=== PATIENT | female | born 1940 | race Caucasian/White ===

== ENCOUNTER 2021-02-18 11:23 | Emergency (ER) | payer OTHER ==
[2021-02-18 12:56] LABS: #Lymphocytes 0.7 thou/uL (1.20-3.40); #Monocytes 1.3 thou/uL (0.11-0.59); #Neutrophils 13.1 thou/uL (1.40-6.50); %Eosinophils 0.3 % (0.0-10.0); %Lymphocytes 4.8 % (21.0-51.0); %Monocytes 8.8 % (0.0-10.0); %Neutrophils 86.2 % (42.0-75.0); Hemoglobin 13.3 g/dL (12.0-16.0); Mean Corpuscular HGB CONC 31.6 g/dL (32.0-36.0); Mean Corpuscular Hemoglobin 28.6 pg (27.0-31.0); Mean Corpuscular Volume 90.6 fL (78.0-98.0); Mean Platelet Volume 7.3 fL (7.4-10.4); Platelet Count 256 thou/uL (130-400); Red Blood Cell (RBC) Count 4.64 mill/uL (4.20-5.40); White Blood Cell (WBC) Count 15.2 thou/uL (4.8-10.8)
[2021-02-18 13:09] LABS: ALT (SGPT) 17 U/L (8-55); AST (SGOT) 25 U/L (5-34); Albumin 4.1 g/dL (3.4-4.8); Alkaline Phosphatase 71 U/L (40-110); Anion Gap 13 mmol/L (10-20); BUN (Urea Nitrogen) 23 mg/dL (9.8-20.1); Bilirubin, Total 0.7 mg/dL (0.2-1.2); Calc. Creatinine Clearance 0 mL/min (70-130); Calcium 9.7 mg/dL (7.8-10.44); Carbon Dioxide 29 mmol/L (23-31); Chloride 102 mmol/L (98-107); Globulin 3.1 g/dL (2.4-3.5); Glucose 123 mg/dL (83-110); Potassium 4.6 mmol/L (3.5-5.1); Protein, Total 7.2 g/dL (5.8-8.1); Sodium 139 mmol/L (136-145)
[2021-02-18] MEDS ORDERED: Acetaminophen 325 MG TAB ONE (14:07)
== END 2021-02-18 15:05 | disposition home or self-care (01) ==
LOC: ERS 11:23
DX: S80.262A Insect bite (nonvenomous), left knee, initial encounter (principal); R05.9 Cough, unspecified; L08.9 Local infection of the skin and subcutaneous tissue, unspecified; I10 Essential (primary) hypertension; W57.XXXA Bitten or stung by nonvenomous insect and other nonvenomous arthropods, initial encounter
CPT/HCPCS: 36415; 71045; 80053; 83605; 85025; 87040; 94760

== ENCOUNTER 2021-02-20 15:47 | Emergency (ER) | payer OTHER ==
[~2021-02-20 15:47] MED LIST: Iopamidol-370 76% 500 ML 1 ML ONE
[2021-02-20 16:37] LABS: #Monocytes 1.1 thou/uL (0.11-0.59); #Neutrophils 12.1 thou/uL (1.40-6.50); %Basophils 0.2 % (0.0-1.0); %Eosinophils 0.1 % (0.0-10.0); %Lymphocytes 6.9 % (21.0-51.0); %Monocytes 7.4 % (0.0-10.0); %Neutrophils 85.3 % (42.0-75.0); Hemoglobin 12.6 g/dL (12.0-16.0); Mean Corpuscular HGB CONC 31.6 g/dL (32.0-36.0); Mean Corpuscular Hemoglobin 28.6 pg (27.0-31.0); Mean Corpuscular Volume 90.5 fL (78.0-98.0); Mean Platelet Volume 6.9 fL (7.4-10.4); Platelet Count 288 thou/uL (130-400); RBC Distribution Width 12.7 % (11.5-14.5); Red Blood Cell (RBC) Count 4.42 mill/uL (4.20-5.40); White Blood Cell (WBC) Count 14.2 thou/uL (4.8-10.8)
[2021-02-20 17:41] LABS: ALT (SGPT) 20 U/L (8-55); AST (SGOT) 31 U/L (5-34); Albumin 3.9 g/dL (3.4-4.8); Alkaline Phosphatase 68 U/L (40-110); Anion Gap 15 mmol/L (10-20); BUN (Urea Nitrogen) 21 mg/dL (9.8-20.1); Bilirubin, Total 0.7 mg/dL (0.2-1.2); Calc. Creatinine Clearance 0 mL/min (70-130); Calcium 10.2 mg/dL (7.8-10.44); Carbon Dioxide 25 mmol/L (23-31); Chloride 104 mmol/L (98-107); Globulin 3.5 g/dL (2.4-3.5); Glucose 112 mg/dL (83-110); Protein, Total 7.4 g/dL (5.8-8.1); Sodium 140 mmol/L (136-145)
== END 2021-02-20 18:55 | disposition home or self-care (01) ==
LOC: ERS 15:47
DX: J18.9 Pneumonia, unspecified organism (principal); R06.00 Dyspnea, unspecified; I10 Essential (primary) hypertension
CPT/HCPCS: 36415; 71045; 71275; 80053; 84484; 85025; 93005; Q9967

== ENCOUNTER 2021-06-16 14:35 | Outpatient (CLI) | payer MEDICARE | END 2021-06-16 14:36 | disposition home or self-care (01) | LOC: BICMAMMO 14:35 | PROVIDERS: ATTEND Registered Nurse | DX: Z13.820 Encounter for screening for osteoporosis (principal); M85.851 Other specified disorders of bone density and structure, right thigh; Z78.0 Asymptomatic menopausal state | CPT/HCPCS: 77080 ==

== ENCOUNTER 2021-09-10 15:20 | Outpatient (CLI) | payer MEDICARE | END 2021-09-10 15:21 | disposition home or self-care (01) | LOC: SCSMRI 15:20 | PROVIDERS: ATTEND Radiology Radiation Oncology | DX: C49.0 Malignant neoplasm of connective and soft tissue of head, face and neck (principal); I99.8 Other disorder of circulatory system; D23.4 Other benign neoplasm of skin of scalp and neck | CPT/HCPCS: 70553; 82565 ==

== ENCOUNTER 2021-09-14 10:40 | Outpatient (CLI) | payer MEDICARE ==
[2021-09-14] MEDS ORDERED: Iopamidol 370 76% 100 ML VIAL ONE (15:52)
== END 2021-09-14 10:41 | disposition home or self-care (01) ==
LOC: CT 10:40
PROVIDERS: ATTEND Radiology Radiation Oncology
DX: C44.40 Unspecified malignant neoplasm of skin of scalp and neck (principal); E04.2 Nontoxic multinodular goiter; J92.9 Pleural plaque without asbestos; M47.812 Spondylosis without myelopathy or radiculopathy, cervical region; J98.4 Other disorders of lung; Z90.710 Acquired absence of both cervix and uterus
CPT/HCPCS: 70491; 71260; 74177; 82565; Q9967

== ENCOUNTER 2021-09-25 12:30 | Outpatient (CLI) | payer MEDICARE | END 2021-09-25 12:31 | disposition home or self-care (01) | LOC: PET 12:30 | PROVIDERS: ATTEND Internal Medicine Hematology & Oncology | DX: C44.399 Other specified malignant neoplasm of skin of other parts of face (principal); C49.8 Malignant neoplasm of overlapping sites of connective and soft tissue; M89.9 Disorder of bone, unspecified | CPT/HCPCS: 78816; A9552 ==

== ENCOUNTER 2023-06-28 08:50 | Day surgery (SDC) | payer MEDICARE ==
[2023-06-28] MEDS ORDERED: diphenhydrAMINE 25 MG CAP ONE (09:58)
[2023-06-28] MEDS ORDERED: Acetaminophen 500 MG TAB ONE (09:58)
[2023-06-28] MEDS: diphenhydrAMINE 25 MG CAP PO SCH (09:59)
[2023-06-28] MEDS: Acetaminophen 500 MG TAB PO SCH (09:59)
[2023-06-28 13:23] VITALS: BP 152/71; TEMP 98.4
== END 2023-06-28 13:11 | disposition home or self-care (01) ==
LOC: ONC/OP 08:50
PROVIDERS: ATTEND Nurse Practitioner Family
DX: D64.9 Anemia, unspecified (principal); D69.6 Thrombocytopenia, unspecified
CPT/HCPCS: 36430; 86850; 86900; 86901; 86920; P9016

== ENCOUNTER 2023-08-01 14:10 | Outpatient (CLI) | payer MEDICARE | END 2023-08-01 14:11 | disposition home or self-care (01) | LOC: BICMAMMO 14:10 | PROVIDERS: ATTEND Registered Nurse | DX: Z13.820 Encounter for screening for osteoporosis (principal); M85.851 Other specified disorders of bone density and structure, right thigh; M85.852 Other specified disorders of bone density and structure, left thigh; Z78.0 Asymptomatic menopausal state | CPT/HCPCS: 77080 ==

== ENCOUNTER 2023-08-18 09:31 | Day surgery (SDC) | payer MEDICARE ==
[~2023-08-18 09:31] MED LIST changes: +Acetaminophen 500 MG TAB PO SCH; -Iopamidol-370 76% 500 ML 1 ML ONE; +diphenhydrAMINE 25 MG CAP PO SCH
[2023-08-18] MEDS ORDERED: cloNIDine 0.1 MG TAB ONE (13:16)
[2023-08-18] MEDS: cloNIDine 0.1 MG TAB PO SCH (13:18)
[2023-08-18 15:14] VITALS: BP 120/54; TEMP 98.2
== END 2023-08-18 15:23 | disposition home or self-care (01) ==
LOC: ONC/OP 09:31
PROVIDERS: ATTEND Nurse Practitioner Adult Health
DX: D64.9 Anemia, unspecified (principal)
CPT/HCPCS: 36430; 86850; 86900; 86901; 86920; P9016

== ENCOUNTER 2023-08-20 11:48 | Inpatient (IN) | payer MEDICARE ==
[2023-08-20 12:18] LABS: #Basophils 0.06 10x3/uL (0.0-0.2); %Basophils 0.5 % (0.0-1.0); %Eosinophils 2.5 % (0.0-10.0); %Lymphocytes 12.3 % (21.0-51.0); %Neutrophils 76.3 % (42.0-75.0); Hematocrit 36.2 % (36.0-47.0); Hemoglobin 10.9 g/dL (12.0-16.0); Mean Corpuscular HGB CONC 30.1 g/dL (32.0-36.0); Mean Corpuscular Volume 79.7 fL (78.0-98.0); Mean Platelet Volume 8.6 fL (7.4-10.4); Platelet Count 376 10x3/uL (130-400); RBC Distribution Width 18.8 % (11.5-14.5); Red Blood Cell (RBC) Count 4.54 mill/uL (4.20-5.40)
[2023-08-20] MEDS ORDERED: Iopamidol-370 76% 500 ML MDV (1 ML CHARGE) ONE (12:29)
[2023-08-20 12:33] LABS: ALT (SGPT) 11 U/L (8-55); AST (SGOT) 21 U/L (5-34); Albumin 2.7 g/dL (3.4-4.8); Alkaline Phosphatase 101 U/L (40-110); Anion Gap 18 mmol/L (10-20); BUN (Urea Nitrogen) 17 mg/dL (9.8-20.1); Bilirubin, Total 0.6 mg/dL (0.2-1.2); Calc. Creatinine Clearance 0 mL/min (70-130); Calcium 9.1 mg/dL (7.8-10.44); Carbon Dioxide 23 mmol/L (23-31); Chloride 99 mmol/L (98-107); Estimated GFR 88; Globulin 4.3 g/dL (2.4-3.5); Glucose 86 mg/dL (83-110); Lipase 13 U/L (8-78); Potassium 4.4 mmol/L (3.5-5.1); Sodium 136 mmol/L (136-145)
[2023-08-20 12:39] LABS: Troponin I Less than 0.010 ng/mL (< 0.028)
[2023-08-20 12:56] LABS: Influenza A by NAA Not Detected (NotDetected); Influenza B by NAA Not Detected (NotDetected); SARS-CoV-2 NAA Rapid Test Not Detected (NotDetected)
[2023-08-20 13:02] LABS: Bacteria/HPF None Seen HPF (None Seen); Bilirubin Negative (Negative); Blood, Urine Negative (Negative); CAUTI Indications for Culture Dysuria,urgency,freq; Clarity Clear (Clear); Glucose, Urine (Dipstick) Normal (Negative); Ketone, Urine Negative (Negative); Leukocyte Negative Leu/uL (Negative); Nitrite Negative (Negative); Protein, Urine (Dipstick) 10 mg/dL (Neg-Trace); RBC/HPF 0-3 HPF (0-3); Specific Gravity, Urine 1.015 (1.002-1.036); Squamous Epithelial None Seen HPF (0-3); Urobilinogen Normal mg/dL (Less than 2); WBC/HPF 0-3 HPF (0-3)
[2023-08-20 13:08] LABS: Urine Culture Reflex No No
[2023-08-20] MEDS ORDERED: Ketorolac Tromethamine 30 MG (1 mL) VIAL ONE (13:09)
[2023-08-20 13:38] LABS: Prothrombin Time 13.1 sec (12.0-14.7)
[2023-08-20 13:39] LABS: PTT 42.1 sec (22.9-36.1)
[2023-08-20 13:50] LABS: D-Dimer Test 7.44 mcg/mL (0.27-0.43)
[2023-08-20] MEDS ORDERED: Piperacillin/Tazobactam 4.5 GM VIAL ONE (14:47)
[2023-08-20] MEDS ORDERED: Sodium Chloride 0.9% 100 ML ONE (14:47)
[2023-08-20] MEDS ORDERED: Vancomycin 1 GM/200 ML (FROZEN) BAG ONE (15:27)
[2023-08-20] MEDS ORDERED: Acetaminophen 325 MG TAB PO PRN (16:01)
[2023-08-20] MEDS ORDERED: Ondansetron PF 4 MG/2 ML Vial IVP PRN (16:01)
[2023-08-20] MEDS ORDERED: Senokot S 8.6-50 MG TAB PO PRN (16:01)
[2023-08-20] MEDS ORDERED: Bisacodyl 10 MG SUPP PR PRN (16:01)
[2023-08-20] MEDS ORDERED: Ondansetron ODT 4 MG TAB PO PRN (16:01)
[2023-08-20] MEDS ORDERED: Acetaminophen 650 MG Suppository PR PRN (16:01)
[2023-08-20] MEDS ORDERED: Ipratropium/Albuterol 3 ML NEB NEB PRN (16:13)
[2023-08-20 16:47] VITALS: BMI 19.2
[2023-08-20] MEDS: Furosemide 20 MG (2 mL) VIAL SLOW IVP SCH (17:42)
[2023-08-20] MEDS: Piperacillin/Tazobactam 3.375 GM in Sodium Chloride 0.9% 100 ML IVPB SCH (17:42)
[2023-08-20] MEDS: methylPREDNISolone Sod Succ 40 MG VIAL IVP SCH (21:22)
[2023-08-20] MEDS: Famotidine/PF 20 mg/2ml Vial SLOW IVP SCH (21:22)
[2023-08-20] MEDS: Ipratropium/Albuterol 3 ML NEB NEB SCH (21:24)
[2023-08-21] MEDS: hydrALAZINE 20 MG/ML VIAL SLOW IVP SCH (01:05)
[2023-08-21] MEDS ORDERED: Sterile Water 10 ML VIAL FS PRN (04:45)
[2023-08-21] MEDS: Ziprasidone 20 MG VIAL IM SCH (04:51)
[2023-08-21 04:55] LABS: Legionella Urinary Ag Negative (Negative); Strep pneumo Urine Ag NEGATIVE (NEGATIVE)
[2023-08-21] MEDS: Furosemide 40 MG (4 mL) VIAL SLOW IVP SCH (09:36)
[2023-08-21] MEDS: Rosuvastatin 10 MG TAB PO SCH (09:37)
[2023-08-21] MEDS: Vancomycin 1 GM in Premix 1 BAG IVPB SCH (09:37)
[2023-08-21] MEDS: Aspirin 81 mg Enteric Coated Tablet PO SCH (09:37)
[2023-08-21 12:15] LABS: #Basophils Less than 0.03 10x3/uL (0.0-0.2); #Eosinphils Less than 0.03 10x3/uL (0.0-0.7); %Basophils 0.1 % (0.0-1.0); %Neutrophils 92.3 % (42.0-75.0); Hemoglobin 10.1 g/dL (12.0-16.0); Mean Corpuscular HGB CONC 30.6 g/dL (32.0-36.0); Mean Corpuscular Hemoglobin 24.3 pg (27.0-31.0); Mean Corpuscular Volume 79.5 fL (78.0-98.0); Mean Platelet Volume 8.5 fL (7.4-10.4); Platelet Count 370 10x3/uL (130-400); RBC Distribution Width 19.5 % (11.5-14.5); Red Blood Cell (RBC) Count 4.15 mill/uL (4.20-5.40)
[2023-08-21 12:34] LABS: Vancomycin, Random 29.9 ug/mL (See Comment)
[2023-08-21 12:37] LABS: ALT (SGPT) 12 U/L (8-55); AST (SGOT) 23 U/L (5-34); Albumin 2.8 g/dL (3.4-4.8); Alkaline Phosphatase 92 U/L (40-110); Anion Gap 18 mmol/L (10-20); BUN (Urea Nitrogen) 25 mg/dL (9.8-20.1); Bilirubin, Total 0.5 mg/dL (0.2-1.2); Calc. Creatinine Clearance 39 mL/min (70-130); Calcium 9.7 mg/dL (7.8-10.44); Carbon Dioxide 26 mmol/L (23-31); Chloride 100 mmol/L (98-107); Estimated GFR 71; Globulin 4.4 g/dL (2.4-3.5); Glucose 149 mg/dL (83-110); Potassium 4.1 mmol/L (3.5-5.1); Protein, Total 7.2 g/dL (5.8-8.1); Sodium 140 mmol/L (136-145)
[2023-08-21] MEDS: Lorazepam 2 MG/ML VIAL SLOW IVP PRN (16:02)
[2023-08-22] MEDS: Furosemide 40 MG (4 mL) VIAL SLOW IVP SCH (05:13)
[2023-08-22] MEDS: Famotidine/PF 20 mg/2ml Vial SLOW IVP SCH (08:33)
[2023-08-22] MEDS: hydrALAZINE 20 MG/ML VIAL SLOW IVP PRN (10:35)
[2023-08-23 05:11] LABS: #Basophils Less than 0.03 10x3/uL (0.0-0.2); #Eosinphils Less than 0.03 10x3/uL (0.0-0.7); %Basophils 0.1 % (0.0-1.0); %Lymphocytes 2.9 % (21.0-51.0); %Monocytes 2.8 % (0.0-10.0); %Neutrophils 93.4 % (42.0-75.0); Hematocrit 34.7 % (36.0-47.0); Hemoglobin 10.6 g/dL (12.0-16.0); Mean Corpuscular HGB CONC 30.5 g/dL (32.0-36.0); Mean Corpuscular Hemoglobin 24.1 pg (27.0-31.0); Mean Corpuscular Volume 78.9 fL (78.0-98.0); Mean Platelet Volume 8.4 fL (7.4-10.4); Platelet Count 366 10x3/uL (130-400); RBC Distribution Width 19.9 % (11.5-14.5)
[2023-08-23 05:33] LABS: Vancomycin, Random 15.4 ug/mL (See Comment)
[2023-08-23 07:06] LABS: Anion Gap 22 mmol/L (10-20); BUN (Urea Nitrogen) 33 mg/dL (9.8-20.1); Calc. Creatinine Clearance 41 mL/min (70-130); Calcium 9.4 mg/dL (7.8-10.44); Carbon Dioxide 27 mmol/L (23-31); Chloride 98 mmol/L (98-107); Estimated GFR 76; Glucose 109 mg/dL (83-110); Potassium 3.3 mmol/L (3.5-5.1); Sodium 144 mmol/L (136-145)
[2023-08-23] MEDS ORDERED: Electrolyte Replacement Protocol FS PRN (15:00)
[2023-08-23] MEDS: Amino Acids 4.25 %/Dextrose 5% 1,000 ML IV SCH (16:20)
[2023-08-23] MEDS: Potassium Chloride 20 MEQ TAB PO SCH (16:21)
[2023-08-24 05:14] LABS: #Basophils Less than 0.03 10x3/uL (0.0-0.2); %Basophils 0.1 % (0.0-1.0); %Eosinophils 0.4 % (0.0-10.0); %Lymphocytes 9.5 % (21.0-51.0); %Monocytes 9.6 % (0.0-10.0); %Neutrophils 79.8 % (42.0-75.0); Mean Corpuscular HGB CONC 30.6 g/dL (32.0-36.0); Mean Corpuscular Hemoglobin 24.2 pg (27.0-31.0); Mean Corpuscular Volume 79.1 fL (78.0-98.0); Mean Platelet Volume 8.5 fL (7.4-10.4); Platelet Count 379 10x3/uL (130-400); Red Blood Cell (RBC) Count 4.55 mill/uL (4.20-5.40)
[2023-08-24] MEDS: Nystatin 500,000 UNITS/5 ML UDCUP SSW SCH (05:16)
[2023-08-24 05:43] LABS: Anion Gap 19 mmol/L (10-20); BUN (Urea Nitrogen) 49 mg/dL (9.8-20.1); Calc. Creatinine Clearance 33 mL/min (70-130); Calcium 9.2 mg/dL (7.8-10.44); Carbon Dioxide 28 mmol/L (23-31); Chloride 99 mmol/L (98-107); Estimated GFR 58; Glucose 98 mg/dL (83-110); Magnesium 2.3 mg/dL (1.6-2.6); Potassium 3.3 mmol/L (3.5-5.1); Sodium 143 mmol/L (136-145)
[2023-08-24] MEDS: Vancomycin 1 GM in Premix 1 BAG IVPB SCH (09:29)
[2023-08-24] MEDS: Potassium Chloride 20 MEQ in Premix 1 BAG IVPB SCH (09:30)
[2023-08-24] MEDS: Aluminum & Magnesium Hydroxide 60 ML, diphenhydrAMINE 150 MG, Lidocaine 2% Viscous Solu... SSW SCH (12:25)
[2023-08-24 15:04] VITALS: BMI 19.2
[2023-08-25 06:21] LABS: #Basophils 0.04 10x3/uL (0.0-0.2); %Basophils 0.3 % (0.0-1.0); %Eosinophils 2.5 % (0.0-10.0); %Lymphocytes 7.3 % (21.0-51.0); %Monocytes 8.8 % (0.0-10.0); %Neutrophils 80.4 % (42.0-75.0); Hematocrit 38.8 % (36.0-47.0); Hemoglobin 11.8 g/dL (12.0-16.0); Mean Corpuscular HGB CONC 30.4 g/dL (32.0-36.0); Mean Corpuscular Hemoglobin 23.8 pg (27.0-31.0); Mean Corpuscular Volume 78.4 fL (78.0-98.0); Mean Platelet Volume 8.5 fL (7.4-10.4); Platelet Count 371 10x3/uL (130-400); RBC Distribution Width 20.5 % (11.5-14.5); Red Blood Cell (RBC) Count 4.95 mill/uL (4.20-5.40)
[2023-08-25 06:48] LABS: Vancomycin, Random 22.2 ug/mL (See Comment)
[2023-08-25 06:51] LABS: Anion Gap 15 mmol/L (10-20); BUN (Urea Nitrogen) 41 mg/dL (9.8-20.1); Calc. Creatinine Clearance 36 mL/min (70-130); Calcium 9.1 mg/dL (7.8-10.44); Carbon Dioxide 28 mmol/L (23-31); Chloride 101 mmol/L (98-107); Estimated GFR 64; Glucose 99 mg/dL (83-110); Potassium 3.3 mmol/L (3.5-5.1); Sodium 141 mmol/L (136-145)
[2023-08-25] MEDS: Vancomycin HCl 750 MG in Sodium Chloride 0.9% 250 ML 250 ML IVPB SCH (09:46)
[2023-08-25] MEDS: Potassium Chloride 20 MEQ TAB PO SCH (09:46)
[2023-08-25 13:07] VITALS: BP 128/67; TEMP 97.3
== END 2023-08-25 13:58 | disposition home or self-care (01) | DRG 193 ==
LOC: ERS 11:48 → MSONC 14:50
PROVIDERS: ADMIT Internal Medicine; ATTEND Family Medicine
DX: J18.9 Pneumonia, unspecified organism (principal); G93.41 Metabolic encephalopathy; I50.33 Acute on chronic diastolic (congestive) heart failure; J96.01 Acute respiratory failure with hypoxia; C49.8 Malignant neoplasm of overlapping sites of connective and soft tissue; I11.0 Hypertensive heart disease with heart failure; E78.5 Hyperlipidemia, unspecified; K21.9 Gastro-esophageal reflux disease without esophagitis; D63.8 Anemia in other chronic diseases classified elsewhere; Z66 Do not resuscitate; R41.0 Disorientation, unspecified; C44.40 Unspecified malignant neoplasm of skin of scalp and neck; Z79.899 Other long term (current) drug therapy; Z79.82 Long term (current) use of aspirin; Z90.49 Acquired absence of other specified parts of digestive tract; Z90.710 Acquired absence of both cervix and uterus; D63.0 Anemia in neoplastic disease; C44.399 Other specified malignant neoplasm of skin of other parts of face
CPT/HCPCS: 36415; 51701; 70450; 71275; 80048; 80053; 80202; 81001; 82565; 82607; 82728; 82746; 83540; 83550; 83605; 83690; 83735; 83880; 84145; 84146; 84443; 84484; 85025; 85379; 85610; 85730; 86850; 86900; 86901; 87040; 87077; 87086; 87149; 87449; 87899; 93005; 93306; 94640; 96361; 96365; 96366; 96375; J0360; J1885; J1940; J2060; J2543; J2920; J3370; J3370-JW; J3480; J3486; J3490; J7050; J7620; Q0163; Q9967; S0028

== ENCOUNTER 2024-02-12 17:30 | Observation (INO) | payer MEDICARE ==
[2024-02-12] MEDS ORDERED: Ondansetron ODT 4 MG TAB SL PRN (18:00)
[2024-02-12] MEDS ORDERED: Acetaminophen 325 MG TAB PO PRN ×2 (18:00→18:51)
[2024-02-12] MEDS ORDERED: Ondansetron PF 4 MG/2 ML Vial IVP PRN ×2 (18:00→18:51)
[2024-02-12 18:16] VITALS: BMI 17.2
[2024-02-12] MEDS ORDERED: Ondansetron ODT 4 MG TAB PO PRN (18:51)
[2024-02-12] MEDS ORDERED: Acetaminophen 650 MG Suppository PR PRN (18:51)
[2024-02-12] MEDS ORDERED: GUAIFENESIN SF SOLN 200 MG/10 ML UDCUP PO PRN (19:18)
[2024-02-12] MEDS ORDERED: Ipratropium/Albuterol 3 ML NEB NEB PRN (19:18)
[2024-02-12] MEDS ORDERED: Benzonatate 100 MG CAP PO PRN (19:18)
[2024-02-12] MEDS: Famotidine 20 MG TAB PO SCH (22:32)
[2024-02-12 23:33] LABS: Influenza A by NAA Not Detected (NotDetected); Influenza B by NAA Not Detected (NotDetected); RSV by NAA Not Detected (NotDetected); SARS-CoV-2 NAA Rapid Test Not Detected (NotDetected)
[2024-02-13 04:46] LABS: #Basophils 0.05 10x3/uL (0.0-0.2); %Basophils 0.7 % (0.0-1.0); %Eosinophils 2.8 % (0.0-10.0); %Lymphocytes 17.6 % (21.0-51.0); %Neutrophils 67.6 % (42.0-75.0); Hematocrit 38.1 % (36.0-47.0); Mean Corpuscular HGB CONC 31.5 g/dL (32.0-36.0); Mean Corpuscular Hemoglobin 28.2 pg (27.0-31.0); Mean Corpuscular Volume 89.6 fL (78.0-98.0); Mean Platelet Volume 9.7 fL (7.4-10.4); Platelet Count 145 10x3/uL (130-400); RBC Distribution Width 13.3 % (11.5-14.5); Red Blood Cell (RBC) Count 4.25 mill/uL (4.20-5.40)
[2024-02-13 04:56] LABS: Anion Gap 14 mmol/L (10-20); BUN (Urea Nitrogen) 20 mg/dL (9.8-20.1); Calc. Creatinine Clearance 40 mL/min (70-130); Calcium 8.9 mg/dL (7.8-10.44); Carbon Dioxide 24 mmol/L (23-31); Chloride 109 mmol/L (98-107); Estimated GFR 84; Glucose 107 mg/dL (83-110); Potassium 4.2 mmol/L (3.5-5.1); Sodium 143 mmol/L (136-145)
[2024-02-13 12:25] VITALS: BP 186/86; TEMP 97.7
[2024-02-13 14:43] VITALS: BMI 17.2
== END 2024-02-13 15:37 | disposition home or self-care (01) ==
LOC: 2NO 17:30
PROVIDERS: ADMIT Family Medicine; ATTEND Internal Medicine
DX: C44.99 Other specified malignant neoplasm of skin, unspecified (principal); I12.9 Hypertensive chronic kidney disease with stage 1 through stage 4 chronic kidney disease, or unspecified chronic kidney disease; N18.2 Chronic kidney disease, stage 2 (mild); D63.1 Anemia in chronic kidney disease; E78.5 Hyperlipidemia, unspecified; D64.9 Anemia, unspecified; K21.9 Gastro-esophageal reflux disease without esophagitis; I73.9 Peripheral vascular disease, unspecified; J93.9 Pneumothorax, unspecified; J90 Pleural effusion, not elsewhere classified
CPT/HCPCS: 0241U; 71045; 80048; 85025; G0378 ×2; 36415

== ENCOUNTER 2024-04-01 09:41 | Inpatient (IN) | payer MEDICARE ==
[2024-04-01 10:21] LABS: #Basophils 0.06 10x3/uL (0.0-0.2); %Basophils 0.8 % (0.0-1.0); %Eosinophils 8.9 % (0.0-10.0); %Monocytes 8.5 % (0.0-10.0); %Neutrophils 69.4 % (42.0-75.0); Hematocrit 41.7 % (36.0-47.0); Hemoglobin 13.5 g/dL (12.0-16.0); Mean Corpuscular HGB CONC 32.4 g/dL (32.0-36.0); Mean Corpuscular Hemoglobin 28.5 pg (27.0-31.0); Mean Platelet Volume 9.5 fL (7.4-10.4); Platelet Count 174 10x3/uL (130-400); RBC Distribution Width 13.5 % (11.5-14.5); Red Blood Cell (RBC) Count 4.74 mill/uL (4.20-5.40)
[2024-04-01 10:40] LABS: ALT (SGPT) 42 U/L (Less than 34); AST (SGOT) 36 U/L (11-34); Alkaline Phosphatase 69 U/L (40-110); Anion Gap 13 mmol/L (10-20); BUN (Urea Nitrogen) 23 mg/dL (9.8-20.1); Bilirubin, Total 0.5 mg/dL (0.3-1.2); Calc. Creatinine Clearance 0 mL/min (70-130); Calcium 9.6 mg/dL (7.8-10.44); Carbon Dioxide 26 mmol/L (23-31); Chloride 106 mmol/L (98-107); Estimated GFR 77; Globulin 3.1 g/dL (2.4-3.5); Glucose 94 mg/dL (83-110); Potassium 4.2 mmol/L (3.5-5.1); Protein, Total 7.1 g/dL (5.8-8.1); Sodium 141 mmol/L (136-145)
[2024-04-01 10:41] LABS: Troponin I 0.027 ng/mL (< 0.028)
[2024-04-01] MEDS ORDERED: Iopamidol-370 76% 500 ML MDV (1 ML CHARGE) ONE (13:10)
[2024-04-01] MEDS ORDERED: Calcium Carbonate 500 MG ChewTAB PO PRN (13:16)
[2024-04-01] MEDS ORDERED: Ondansetron ODT 4 MG TAB PO PRN (13:16)
[2024-04-01] MEDS ORDERED: Ondansetron PF 4 MG/2 ML Vial IVP PRN (13:16)
[2024-04-01] MEDS ORDERED: Acetaminophen 650 MG Suppository PR PRN (13:16)
[2024-04-01] MEDS ORDERED: Senokot S 8.6-50 MG TAB PO PRN (13:16)
[2024-04-01] MEDS ORDERED: Morphine 2 MG/ML VIAL SLOW IVP PRN (13:18)
[2024-04-01] MEDS ORDERED: traMADol HCl 50 MG TAB PO PRN (17:18)
[2024-04-01] MEDS ORDERED: Loratadine 10 MG TAB PO PRN (17:28)
[2024-04-01 18:47] VITALS: BMI 15.0
[2024-04-01] MEDS: Metoprolol Tartrate 25 MG TAB PO SCH (19:57)
[2024-04-02 06:56] LABS: #Basophils 0.06 10x3/uL (0.0-0.2); %Basophils 0.8 % (0.0-1.0); %Eosinophils 10.3 % (0.0-10.0); %Monocytes 11.7 % (0.0-10.0); %Neutrophils 60.9 % (42.0-75.0); Hematocrit 37.3 % (36.0-47.0); Mean Corpuscular HGB CONC 32.2 g/dL (32.0-36.0); Mean Corpuscular Hemoglobin 28.4 pg (27.0-31.0); Mean Corpuscular Volume 88.4 fL (78.0-98.0); Mean Platelet Volume 9.3 fL (7.4-10.4); Platelet Count 154 10x3/uL (130-400); RBC Distribution Width 13.6 % (11.5-14.5); Red Blood Cell (RBC) Count 4.22 mill/uL (4.20-5.40)
[2024-04-02 07:13] LABS: Anion Gap 11 mmol/L (10-20); BUN (Urea Nitrogen) 18 mg/dL (9.8-20.1); Calc. Creatinine Clearance 32 mL/min (70-130); Carbon Dioxide 27 mmol/L (23-31); Chloride 109 mmol/L (98-107); Potassium 4.7 mmol/L (3.5-5.1); Sodium 142 mmol/L (136-145)
[2024-04-02 07:14] LABS: Calcium 9.1 mg/dL (7.8-10.44); Estimated GFR 75; Glucose 101 mg/dL (83-110)
[2024-04-02] MEDS: Rosuvastatin 10 MG TAB PO SCH (09:09)
[2024-04-02] MEDS: Sertraline 25 MG TAB PO SCH (09:10)
[2024-04-02] MEDS ORDERED: Ipratropium/Albuterol 3 ML NEB NEB PRN (18:13)
[2024-04-02] MEDS: Acetaminophen 325 MG TAB PO PRN (20:14)
[2024-04-03 05:55] LABS: #Basophils 0.05 10x3/uL (0.0-0.2); %Basophils 0.6 % (0.0-1.0); %Eosinophils 6.8 % (0.0-10.0); %Lymphocytes 12.3 % (21.0-51.0); %Neutrophils 68.9 % (42.0-75.0); Hematocrit 38.5 % (36.0-47.0); Hemoglobin 12.3 g/dL (12.0-16.0); Mean Corpuscular HGB CONC 31.9 g/dL (32.0-36.0); Mean Corpuscular Hemoglobin 28.1 pg (27.0-31.0); Mean Corpuscular Volume 88.1 fL (78.0-98.0); Mean Platelet Volume 9.5 fL (7.4-10.4); Platelet Count 174 10x3/uL (130-400); RBC Distribution Width 13.5 % (11.5-14.5); Red Blood Cell (RBC) Count 4.37 mill/uL (4.20-5.40)
[2024-04-03 06:07] LABS: Anion Gap 13 mmol/L (10-20); BUN (Urea Nitrogen) 19 mg/dL (9.8-20.1); Calc. Creatinine Clearance 34 mL/min (70-130); Calcium 9.2 mg/dL (7.8-10.44); Carbon Dioxide 26 mmol/L (23-31); Chloride 108 mmol/L (98-107); Estimated GFR 81; Glucose 112 mg/dL (83-110); INR-International Normal Ratio 0.9; Potassium 4.9 mmol/L (3.5-5.1); Prothrombin Time 12.4 sec (12.0-14.7); Sodium 142 mmol/L (136-145)
[2024-04-03 11:28] VITALS: BMI 15.0
[2024-04-04 05:17] LABS: #Basophils 0.04 10x3/uL (0.0-0.2); %Basophils 0.5 % (0.0-1.0); %Eosinophils 10.6 % (0.0-10.0); %Lymphocytes 13.7 % (21.0-51.0); %Monocytes 9.4 % (0.0-10.0); %Neutrophils 65.5 % (42.0-75.0); Hematocrit 40.7 % (36.0-47.0); Hemoglobin 13.2 g/dL (12.0-16.0); Mean Corpuscular HGB CONC 32.4 g/dL (32.0-36.0); Mean Corpuscular Hemoglobin 28.3 pg (27.0-31.0); Mean Corpuscular Volume 87.3 fL (78.0-98.0); Mean Platelet Volume 9.7 fL (7.4-10.4); Platelet Count 187 10x3/uL (130-400); RBC Distribution Width 13.5 % (11.5-14.5); Red Blood Cell (RBC) Count 4.66 mill/uL (4.20-5.40)
[2024-04-04 05:37] LABS: Anion Gap 12 mmol/L (10-20); BUN (Urea Nitrogen) 28 mg/dL (9.8-20.1); Calc. Creatinine Clearance 32 mL/min (70-130); Calcium 9.3 mg/dL (7.8-10.44); Carbon Dioxide 27 mmol/L (23-31); Chloride 106 mmol/L (98-107); Estimated GFR 75; Glucose 101 mg/dL (83-110); Potassium 4.4 mmol/L (3.5-5.1); Sodium 141 mmol/L (136-145)
[2024-04-04] MEDS: Metoprolol Tartrate 25 MG TAB PO SCH (20:31)
[2024-04-05] MEDS ORDERED: CEFAZOLIN 2 GM in Sodium Chloride 0.9% 100 ML IVPB SCH (00:01)
[2024-04-05] MEDS ORDERED: Lidocaine 1% (PF) 30 ML VIAL ONE (06:37)
[2024-04-05 06:40] LABS: #Basophils 0.05 10x3/uL (0.0-0.2); %Basophils 0.5 % (0.0-1.0); %Eosinophils 9.8 % (0.0-10.0); %Lymphocytes 15.2 % (21.0-51.0); %Monocytes 8.8 % (0.0-10.0); %Neutrophils 65.3 % (42.0-75.0); Hematocrit 40.5 % (36.0-47.0); Mean Corpuscular HGB CONC 32.1 g/dL (32.0-36.0); Mean Corpuscular Hemoglobin 28.3 pg (27.0-31.0); Mean Platelet Volume 9.6 fL (7.4-10.4); Platelet Count 194 10x3/uL (130-400); RBC Distribution Width 13.6 % (11.5-14.5)
[2024-04-05 06:41] LABS: Anion Gap 15 mmol/L (10-20); BUN (Urea Nitrogen) 30 mg/dL (9.8-20.1); Calc. Creatinine Clearance 33 mL/min (70-130); Calcium 9.6 mg/dL (7.8-10.44); Carbon Dioxide 25 mmol/L (23-31); Chloride 106 mmol/L (98-107); Estimated GFR 79; Glucose 103 mg/dL (83-110); Potassium 5.2 mmol/L (3.5-5.1); Sodium 141 mmol/L (136-145)
[2024-04-05] MEDS ORDERED: CEFAZOLIN 2 GM VIAL ONE (07:08)
[2024-04-05] MEDS ORDERED: KETAMINE 100 MG/ML (5ML VIAL) ONE (07:16)
[2024-04-05] MEDS ORDERED: Midazolam HCl 2 mg/2 ml Vial ONE (07:16)
[2024-04-05] MEDS ORDERED: fentaNYL 50 mcg/mL 1 mL Vial ONE (07:22)
[2024-04-05] MEDS ORDERED: Promethazine HCl 25 MG/ML VIAL IM PRN (07:52)
[2024-04-05] MEDS ORDERED: Ondansetron PF 4 MG/2 ML Vial IVP PRN (07:52)
[2024-04-05] MEDS ORDERED: Ondansetron HCl/PF 4 MG/2 ML Vial IVP PRN (08:06)
[2024-04-05] MEDS: Metoprolol Succinate XL 50 MG ER.TAB PO SCH (08:59)
[2024-04-05 12:58] LABS: Anion Gap 14 mmol/L (10-20); BUN (Urea Nitrogen) 26 mg/dL (9.8-20.1); Calc. Creatinine Clearance 34 mL/min (70-130); Calcium 9.2 mg/dL (7.8-10.44); Carbon Dioxide 26 mmol/L (23-31); Chloride 106 mmol/L (98-107); Estimated GFR 81; Glucose 94 mg/dL (83-110); Potassium 4.7 mmol/L (3.5-5.1); Sodium 141 mmol/L (136-145)
[2024-04-05] MEDS: CEFAZOLIN 2 GM in Sodium Chloride 0.9% 100 ML IVPB SCH (15:44)
[2024-04-06 05:11] LABS: #Basophils 0.04 10x3/uL (0.0-0.2); %Basophils 0.4 % (0.0-1.0); %Eosinophils 9.9 % (0.0-10.0); %Monocytes 8.7 % (0.0-10.0); %Neutrophils 68.6 % (42.0-75.0); Hematocrit 41.3 % (36.0-47.0); Hemoglobin 13.1 g/dL (12.0-16.0); Mean Corpuscular HGB CONC 31.7 g/dL (32.0-36.0); Mean Corpuscular Hemoglobin 28.1 pg (27.0-31.0); Mean Corpuscular Volume 88.4 fL (78.0-98.0); Mean Platelet Volume 9.4 fL (7.4-10.4); Platelet Count 181 10x3/uL (130-400); RBC Distribution Width 13.6 % (11.5-14.5); Red Blood Cell (RBC) Count 4.67 mill/uL (4.20-5.40)
[2024-04-06 05:25] LABS: Anion Gap 12 mmol/L (10-20); BUN (Urea Nitrogen) 19 mg/dL (9.8-20.1); Calc. Creatinine Clearance 35 mL/min (70-130); Calcium 9.1 mg/dL (7.8-10.44); Carbon Dioxide 27 mmol/L (23-31); Chloride 106 mmol/L (98-107); Estimated GFR 83; Glucose 99 mg/dL (83-110); Potassium 4.5 mmol/L (3.5-5.1); Sodium 140 mmol/L (136-145)
[2024-04-06 15:24] VITALS: BP 126/85; TEMP 97.8
[2024-04-06] MEDS ORDERED: Metoprolol Succinate XL 25 MG ER.TAB PO SCH (21:00)
== END 2024-04-06 15:05 | disposition home or self-care (01) | DRG 199 ==
LOC: ERS 09:41 → T4-B 12:22
PROVIDERS: ADMIT Internal Medicine; ATTEND Family Medicine
PROC: 0W9B30Z Drainage of Left Pleural Cavity with Drainage Device, Percutaneous Approach (ICD-10-PCS; principal; 2024-04-01)
DX: J93.83 Other pneumothorax (principal); E43 Unspecified severe protein-calorie malnutrition; J96.01 Acute respiratory failure with hypoxia; J90 Pleural effusion, not elsewhere classified; Z68.1 Body mass index [BMI] 19.9 or less, adult; I12.9 Hypertensive chronic kidney disease with stage 1 through stage 4 chronic kidney disease, or unspecified chronic kidney disease; Z66 Do not resuscitate; C44.99 Other specified malignant neoplasm of skin, unspecified; D63.8 Anemia in other chronic diseases classified elsewhere; R53.81 Other malaise; E78.5 Hyperlipidemia, unspecified; N18.2 Chronic kidney disease, stage 2 (mild); K21.9 Gastro-esophageal reflux disease without esophagitis; Z51.5 Encounter for palliative care; Z90.49 Acquired absence of other specified parts of digestive tract; Z90.79 Acquired absence of other genital organ(s); Z79.899 Other long term (current) drug therapy; Z85.118 Personal history of other malignant neoplasm of bronchus and lung
CPT/HCPCS: 36415; 71045; 71275; 80048; 80053; 83880; 84484; 85025; 85610; 88112; 88305; 93005; A7048; J2250; J3010; Q9967